=== PATIENT | male | born 1965 | race Native Hawaiian/Other Pacific Islander ===

== ENCOUNTER 2017-02-11 10:15 | Outpatient (CLI) | payer OTHER | END 2017-02-11 19:24 | disposition home or self-care (01) | LOC: RAD 10:15 | DX: R10.9 Unspecified abdominal pain (principal); K59.00 Constipation, unspecified ==

== ENCOUNTER 2017-04-10 11:19 | Outpatient (CLI) | payer OTHER ==
[2017-04-10 12:01] LABS: PLATELET COUNT 337 K/uL (142-355)
[2017-04-10 12:14] LABS: POTASSIUM 4.1 mmol/L (3.6-5.2); SODIUM 136 mmol/L (136-145)
== END 2017-04-10 19:21 | disposition home or self-care (01) ==
LOC: LABW 11:19
PROVIDERS: Nurse Practitioner Family
DX: R10.9 Unspecified abdominal pain (principal)
CPT/HCPCS: 36415; 80053; 82150; 82272; 83690; 85027; 86318; Q9963

== ENCOUNTER 2020-03-03 10:13 | Outpatient (CLI) | payer BC | END 2020-03-03 19:12 | disposition home or self-care (01) | LOC: RAD 10:13 | DX: M54.5 Low back pain (principal); M54.6 Pain in thoracic spine ==

== ENCOUNTER 2021-02-06 15:17 | Outpatient (CLI) | payer OTHER | END 2021-02-06 20:59 | disposition home or self-care (01) | LOC: RAD 15:17 | PROVIDERS: ATTEND Nurse Practitioner Family | DX: M53.82 Other specified dorsopathies, cervical region (principal); R20.2 Paresthesia of skin ==